=== PATIENT | female | born 1955 | race Two or more races ===

== ENCOUNTER 2023-08-17 13:56 | Outpatient (CLI) | payer OTHER | END 2023-08-17 14:16 | disposition home or self-care (01) | LOC: SONOGRAMA 13:56 | PROVIDERS: ATTEND Pathology Anatomic Pathology & Clinical Pathology | DX: D34 Benign neoplasm of thyroid gland (principal); E07.89 Other specified disorders of thyroid; E04.1 Nontoxic single thyroid nodule ==

== ENCOUNTER 2024-01-07 15:04 | Outpatient (CLI) | payer OTHER | END 2024-01-07 15:09 | disposition home or self-care (01) | LOC: SONOGRAMA 15:04 | PROVIDERS: ATTEND Pathology Anatomic Pathology & Clinical Pathology | DX: D34 Benign neoplasm of thyroid gland (principal); E07.89 Other specified disorders of thyroid; E04.2 Nontoxic multinodular goiter ==